=== PATIENT | female | born 1935 | race Hispanic/Latino ===

== ENCOUNTER → 2019-01-31 | Outpatient (CLI) | payer OTHER, MEDICARE ==
[~2019-01-31] MED LIST: CLOP75TA14 PO; FURO40TA5 PO; GLIP10TA9 PO; LISI40TA4 PO; PANT40TA25 PO; POTA-79 PO
== END | disposition home or self-care (01) ==
LOC: OIH 15:14
PROVIDERS: ATTEND Family Medicine
DX: M17.11 Unilateral primary osteoarthritis, right knee (principal); I70.0 Atherosclerosis of aorta
CPT/HCPCS: 73562